=== PATIENT | female | born 1985 | race Two or more races ===

== ENCOUNTER → 2021-01-23 | Outpatient (CLI) | payer OTHER ==
--- NOTE | 2021-01-24 07:57 | RAD ---
INDICATION: Reason: EXCESSIVE AND FREQUENT MENSTRUATION W/ IRREG CYCLE / Spl. Instructions: / Histor y: COMPARISON: None. TECHNIQUE: Grayscale and color ultrasound images uterus and adnexa. Transabdominal and transvaginal images obtained. Transvaginal images were needed to better visualize structures that were limited on transabdominal imaging. FINDINGS: Uterus: 96 x 47 x 40 mm. 18 mm endometrial stripe. There are some cystic changes within. Right Ovary: 36 x 31 x 19 mm. Left Ovary: 36 x 23 x 18 mm. Vascular flow identified to bilateral ovaries. Bilateral ovarian follicles/small cysts measuring up to 25 mm on the left and 28 mm on the right. Tariq e limitation secondary to overlying structures obscuring. At the posterior aspect of the uterus there is a 34 x 36 mm mass which appears partially exophytic. IMPRESSION: * Heterogenous thickening of the endometrial stripe with some cystic changes within. Differential c onsiderations would include both benign causes such as hyperplasia as well as higher grade neoplastic etiology. Follow-up could be obtained at a different point in the menstrual cycle to ensure that thi s appropriately decreases to exclude neoplastic causes. Other possible workup options would include s oft tissue sampling or MRI. * Masslike structure at the posterior aspect of the uterus most commonly from fibroid. * Bilateral dominant follicles/small cysts of the ovary. Electronically signed by: Alvino Navas MD (01/24/2021 7:55 AM) [id number]
== END ==
LOC: US 11:25
PROVIDERS: ATTEND Family Medicine Sports Medicine
DX: N83.202 Unspecified ovarian cyst, left side (principal); N83.201 Unspecified ovarian cyst, right side; N92.1 Excessive and frequent menstruation with irregular cycle; R93.89 Abnormal findings on diagnostic imaging of other specified body structures
CPT/HCPCS: 76830; 76856

== ENCOUNTER → 2021-02-23 | Outpatient (CLI) | payer OTHER ==
[2021-02-23 11:58] LABS: BASO % 1 % (0-3); EOS # 0.1 x10^3/uL (0.0-0.7); EOS % 2 % (0-3); HEMATOCRIT 25.4 % (36.0-47.0); HEMOGLOBIN 8.1 g/dL (12.0-15.5); LYMPH # 1.8 x10^3/uL (1.0-4.8); LYMPH % 35 % (24-48); MEAN CORPUSCULAR HEMOGLOBIN 24 pg (25-35); MEAN CORPUSCULAR HGB CONC 32 g/dL (31-37); MEAN CORPUSCULAR VOLUME 74 fL (79-100); MONO # 0.3 x10^3/uL (0.0-1.1); MONO % 6 % (0-9); NEUT # 2.9 x10^3uL (1.8-7.7); NEUT % 56 % (31-73); PLATELET COUNT 401 x10^3/uL (140-400); RED BLOOD COUNT 3.44 x10^6/uL (3.50-5.40); RED CELL DISTRIBUTION WIDTH 16.7 % (11.5-14.5); WHITE BLOOD COUNT 5.1 x10^3/uL (4.0-11.0)
[2021-02-23 12:07] LABS: ALBUMIN 3.7 g/dL (3.4-5.0); ALBUMIN/GLOBULIN RATIO 0.9 (1.0-1.7); CALCIUM 9.1 mg/dL (8.5-10.1); CREATININE 0.8 mg/dL (0.6-1.0); GFR 82.1; POTASSIUM 3.8 mmol/L (3.5-5.1); TOTAL BILIRUBIN 0.2 mg/dL (0.2-1.0); TOTAL PROTEIN 7.9 g/dL (6.4-8.2)
[2021-02-24 16:08] LABS: INSULIN LEVEL 18.7 uIU/mL (2.6-24.9)
[2021-02-26 10:09] LABS: TESTOSTERONE FREE 0.24 ng/dL (0.10-0.85); TESTOSTERONE TOTAL 9 ng/dL (8-60)
== END ==
LOC: LAB 10:47
PROVIDERS: ATTEND Obstetrics & Gynecology
DX: N92.4 Excessive bleeding in the premenopausal period (principal); N93.0 Postcoital and contact bleeding
CPT/HCPCS: 36415; 80053; 83525; 84402; 84403; 85025